=== PATIENT | male | born 1955 | race Caucasian/White ===

== ENCOUNTER → 2016-10-21 | Outpatient (CLI) | payer OTHER ==
--- NOTE | ~2016-10-21 | ESTC ---
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 Conclusions Summary Perfusion Images: The overall quality of the study is good. Left ventricular cavity is noted to be normal on the stress and normal on the rest images. There is no evidence of abnormal lung activity. The right ventricle is not visualized an cannot be assessed. Impression ECG portion of exercise stress test is clinically negative for ischemia by diagnostic criteria. Patient walked for 10 minutes and 45 seconds through 4 stages of ZEENAT protocol. Myocardial perfusion imaging is essentially normal. Overall left ventricular systolic function was normal without regional wall motion abnormalities. Calculated LVEF is 55% and TID ratio is 1.05. There are no previous studies for comparison. Stress Protocols Resting ECG Sinus bradycardia. Pre-stress physical exam: Patient assessed by Charly MANN prior to testing. Chest - CTA Cardio - RRR, S1, S2 Stress Protocol:Exercise Peak HR:166 bpm HR response: Appropriate Peak BP:180/88 mmHg BP response: Appropriate Predicted HR: 160 bpm HR/BP product:06393 % of predicted HR: 104 Reason for termination:Target heart rate ECG Findings No ECG changes suggestive of ischemia. Arrhythmias No rhythm abnormality. Symptoms No cardiovascular symptoms with maximal exercise. Complications Procedure complication: None. Stress Interpretation Patient walked for 10minutes and 45 seconds through 4 stages of ZEENAT protocol. Appropriate hemodynamic response to exercise. No significant ST-T wave changes with exercise. EKG portion is negative for ischemia by diagnostic criteria. The Deshpande Treadmill score was 8.3 .This corresponds to a low risk stress test. Will correlate with nuclear images. Imaging Results Summed scores - Summed stress score: 2 - Summed rest score: 6 - Summed difference score: -4 Stress ejection Ejection fraction:55 % EDV :104 ml ESV :47 ml Stroke volume :57 ml LV mass :137 gr Imaging Protocols Rest Stress Isotope:Tc99m Sestamibi IV Isotope: Tc99m Sestamibi IV Isotope dose:12.4 mCi Isotope dose:38.2 mCi Date:10/21/2016 07:10 Date:10/21/2016 09:15 Technique: SPECT Technique: Gated Supine SPECT Supine Scan Time:45-60 minutes post Scan Time:15-30 minutes post injection injection Medical History Admission Data Admission date: 10/21/2016 Admission Time: 06:46 Hospital Status: Outpatient. Signatures dtt: JAXSON BENSON dtd: 10/21/16 0825 Physician Self Edit
== END | disposition disaster alternative care site (69) ==
LOC: GRAD 06:46
DX: I20.8 Other forms of angina pectoris (principal)
CPT/HCPCS: A9500